=== PATIENT | female | born 2005 | race Caucasian/White ===

== ENCOUNTER 2023-09-11 10:24 | Outpatient (AMB) | payer BC, SELFPAY ==
--- NOTE | 2023-09-11 10:37 | MHC.OFFVIS ---
Vital Signs 09/11/23 10:39 Height 5 ft 4 in Weight 119 lb 0.794 oz BMI 20.4 BP 110/65 Blood Pressure Location Lt brachial Position Sitting Pulse 100 Intake Visit Reasons: abdominal pain, diarrhea Intake Note: Tiesha presents in the office as a new patient appt. CC: Here today for abdominal pains and diarrhea. She states that it is specifically in the lower part of her stomach. Denies any blood when she has a bowel movement. Diarrhea once a week but the pains in her stomach are there every other day. Director Digital Marketing Required: No Allergies No Known Allergies Allergy (Verified 09/11/23 10:39) Medication List - Last Reconciled 09/11/23 by Joan Poe PA-C amitriptyline 40 mg PO DAILY duloxetine 90 mg PO DAILY lamotrigine 100 mg PO BID levonorgestrel (Mirena) intrauterine HPI Comments Details: In 17-year-old female referred with diarrhea. She reportedly has diarrhea approximately 1 time a week. Other times through out the week- constipated- Lower abdominal pain for the past 3 years- pain sometimes relieved after BM- sometimes not- no blood- She has no regimen- Appetite is good- She is a college student-[facility]- pcp in [place] ? POTS and michelle danlos-sleep study pending Started PT-for chronic back and joint pain No N/V/fever or chills PFSH Social History (Updated 09/11/23 @ 11:18 by Joan Poe PA-C) Household Members Other:: [facility]- Parents [place] Alcohol intake: never Patient Tobacco Use Status: Never used Tobacco Current occupational status: employed and student Review of Systems Const All systems reviewed & are unremarkable except as noted in HPI and below Card Denies chest pain and Denies dyspnea Resp Denies dyspnea GI Reports constipation and Reports loose stools Physical Exam Vital Signs: Last Vital Signs Pulse 100 09/11/23 10:39 BP 110/65 09/11/23 10:39 BMI result Body Mass Index 20.4 Const General: cooperative, healthy appearing, comfortable and no acute distress Nutritional Appearance: thin Orientation/consciousness: patient oriented x3 Limitations: no limitations Eyes Conjunctivae: conjunctivae normal Sclerae: sclerae normal Resp Effort & Inspection: normal respiratory effort and able to speak in complete sentences Auscultation: clear to auscultation bilaterally, no crackles, no rales and no rhonchi Cardio Rate: tachycardic ([id number]) Rhythm: regular rhythm GI Palpation (GI): Soft to palpation and nontender Auscultation: normal bowel sounds Skin General skin exam: no rashes or lesions noted Neuro General: patient oriented x3 Extrem Other: hypermobility General: Yes full ROM Psych Appearance: grossly normal and well kempt Mental Status: mental status grossly normal Speech and movement: Normal speech and movement present Affect: normal affect Attitude: cooperative Thought process: Normal thought process present Thought content: Normal thought content present Insight: Good insight present (Psych) Judgement: Good judgement present (Psych) Assessment & Plan Assessment & Plan (1) Diarrhea: Code(s): R19.7 - Diarrhea, unspecified Category: Medical Plan: fiber labs (2) Chronic abdominal pain: Comment: Years periumbilical-nothing specific exacerbate-some relief after BM- Somewhat difficult to assess-bowel issues most her life Code(s): R10.9 - Unspecified abdominal pain; G89.29 - Other chronic pain Category: Medical Plan: Labs Abdominal u/s (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 Manuel henning in clinic Plan See patient with MD for further evaluation given non GI diagnoses- Orders: Orders C Reactive Protein 09/11/23 G89.29 - Other chronic pain, R10.9 - Unspecified abdominal pain, R19.7 - Diarrhea, unspecified Endomysial IgA rflx Titer 09/11/23 G89.29 - Other chronic pain, R10.9 - Unspecified abdominal pain, R19.7 - Diarrhea, unspecified Thyroid Stimulating Hormone 09/11/23 R19.8 - Other specified symptoms and signs involving the digestive system and abdomen Calprotectin, Fecal 09/11/23 R19.7 - Diarrhea, unspecified Complete Blood Count Auto Diff 09/11/23 K52.9 - Noninfective gastroenteritis and colitis, unspecified Comprehensive Met. Panel 09/11/23 K58.9 - Irritable bowel syndrome without diarrhea Erythrocyte Sedimentation Rate 09/11/23 R19.7 - Diarrhea, unspecified Transglutaminase IgA 09/11/23 R19.7 - Diarrhea, unspecified Gliadin Ab Panel 09/11/23 G89.29 - Other chronic pain, R10.9 - Unspecified abdominal pain, R19.7 - Diarrhea, unspecified US abdomen complete 09/11/23 G89.29 - Other chronic pain, R10.9 - Unspecified abdominal pain, R19.7 - Diarrhea, unspecified Patient Instructions: 17-year-old pleasant female somewhat complex medical history currently undergoing workup for Michelle-Danlos as well as POTS With chronic abdominal pain Will follow-up after labs and ultrasound Encouraged to call questions or concerns Coding Level of Care Code New Pt Level 4 (59347) Diagnoses Diarrhea R19.7 Chronic abdominal pain R10.9; G89.29 Michelle-Danlos syndrome Q79.60 Time Spent (min) 35
[2023-09-11 10:39] VITALS: BP 110/65; PULSE 100; BMI 20.4
== END 2023-09-11 11:33 | disposition home or self-care (01) ==
PROVIDERS: Visit Provider Physician Assistant
DX: R19.7 Diarrhea, unspecified (principal); R10.9 Unspecified abdominal pain; G89.29 Other chronic pain; Q79.60 Ehlers-Danlos syndrome, unspecified
CPT/HCPCS: 99204

== ENCOUNTER 2023-09-11 10:24 | Outpatient (REF) | payer BC, SELFPAY ==
[2023-09-11 11:40] LABS: MANUAL DIFF FLAG NO
[2023-09-11 12:15] LABS: Basophils Absolute Auto 0.1 X10*3/uL (0.0-0.2); Basophils Percent Auto 1.3 % (0-2); Eosinophils Absolute Auto 0.1 X10*3/uL (0.0-0.4); Eosinophils Percent Auto 2.1 % (0-4); Hematocrit 41.1 % (37.0-47.0); Hemoglobin 13.7 g/dl (12.0-16.0); Imm Gran Abs Auto 0.01 X10*3/uL (0.00-0.03); Imm Gran Pct Auto 0.2 % (0.0-0.4); Lymphocytes Absolute Auto 2.3 X10*3/uL (1.2-4.9); Lymphocytes Percent Auto 42.4 % (20-40); Mean Corpuscular HGB Conc 33.3 g/dl (31.0-35.0); Mean Corpuscular Hemoglobin 28.8 pg (27.0-33.0); Mean Corpuscular Volume 86.3 fL (80.0-98.0); Monocytes Absolute Auto 0.6 X10*3/uL (0.1-1.2); Monocytes Percent Auto 10.8 % (2-11); Neutrophils Absolute Auto 2.3 x10*3/uL (2.0-8.3); Neutrophils Percent Auto 43.2 % (45-73); Platelet Count 260 X10*3/uL (160-400); Red Blood Count 4.76 X10*6/uL (4.20-5.50); Red Cell Distribution Width 12.8 % (11.0-16.0); White Blood Count 5.4 X10*3/uL (4.8-10.8)
[2023-09-11 12:35] LABS: Alanine Aminotransferase 9 U/L (0-31); Albumin Level 4.3 g/dL (3.5-5.0); Alkaline Phosphatase 59 U/L (39-117); Anion Gap 12 (12-20); Aspartate Amino Transferase 16 U/L (5-31); Bilirubin Total 0.3 mg/dL (0.0-1.0); Blood Urea Nitrogen 7 mg/dL (9-16); C Reactive Protein < 0.04 mg/dL (< or = 0.50); Calcium 9.2 mg/dL (8.4-10.2); Carbon Dioxide 27 mmol/L (22-29); Chloride 104 mmol/L (96-108); Estimated Glomerular Filt Rate > 60; Glucose Random 89 mg/dL (60-115); Potassium 3.8 mmol/L (3.3-5.1); Sodium 139 mmol/L (135-145); Total Protein 7.1 g/dL (6.5-8.0)
[2023-09-11 12:54] LABS: Erythrocyte Sedimentation Rate 1 MM/HR (0-20); Thyroid Stimulating Hormone 0.99 uIU/mL (0.32-4.0)
[2023-09-12 14:13] LABS: Gliadin Deamidated IgA Ab <1.0 U/mL; Gliadin Deamidated IgG Ab <1.0 U/mL; Transglutaminase IgA <1.0 U/mL
[2023-09-14 15:38] LABS: Endomysial IgA Antibody Negative (Negative)
== END 2023-09-11 10:25 | disposition home or self-care (01) ==
LOC: HO.LAB 10:24
PROVIDERS: Visit Provider Physician Assistant
DX: R10.9 Unspecified abdominal pain (principal); G89.29 Other chronic pain; R19.8 Other specified symptoms and signs involving the digestive system and abdomen; K52.9 Noninfective gastroenteritis and colitis, unspecified
CPT/HCPCS: 36415; 80053; 84443; 85025; 85652; 86140; 86231; 86258; 86364

== ENCOUNTER 2023-09-18 08:48 | Outpatient (REF) | payer BC, SELFPAY ==
--- NOTE | ~2023-09-18 | US_ITS ---
EXAMINATION: US ABDOMEN COMPLETE CLINICAL INFORMATION: Unspecified abdominal pain. COMPARISON: None available. TECHNIQUE: Real-time imaging of the abdominal viscera. FINDINGS: PANCREAS: Normal. ABDOMINAL AORTA: The proximal, mid, and distal segments are normal in caliber. INFERIOR VENA CAVA: Visualized portions are normal. LIVER: Normal. The liver is normal in size. The liver contour is normal. Parenchymal echogenicity is normal. No focal hepatic lesion. There is no intrahepatic biliary duct dilatation seen. GALLBLADDER: Normal. The gallbladder is physiologically distended without evidence of stones, sludge, polyps, wall thickening or pericholecystic fluid. COMMON BILE DUCT: Normal in caliber measuring 0.5 cm in diameter. RIGHT KIDNEY: Normal. No hydronephrosis. No renal calculi or focal parenchymal lesions. The kidney measures 9.7 cm in maximum dimension. LEFT KIDNEY: Normal. No hydronephrosis. No renal calculi or focal parenchymal lesions. The kidney measures 10.2 cm in maximum dimension. SPLEEN: Normal. The spleen measures 9.6 cm in maximum dimension. FREE FLUID: None. US/US abdomen complete IMPRESSION: Unremarkable examination.
== END 2023-09-18 08:49 | disposition home or self-care (01) ==
LOC: HO.HMGCX 08:48
PROVIDERS: Visit Provider Physician Assistant
DX: R10.9 Unspecified abdominal pain (principal); R19.7 Diarrhea, unspecified; G89.29 Other chronic pain
CPT/HCPCS: 76700

== ENCOUNTER 2023-12-15 10:31 | Outpatient (REF) | payer BC, SELFPAY ==
--- NOTE | ~2023-12-15 | XR_ITS ---
EXAMINATION: XR ABDOMEN KUB CLINICAL INFORMATION: Diarrhea, unspecified. COMPARISON: None available. TECHNIQUE: AP view of the abdomen. FINDINGS: Moderate volume of stool in the colon. Three residual Sitz markers are evident, located in the descending colon and rectum. Nondilated bowel gas pattern. IUD is present in the pelvis. No acute osseous findings. Minimal left convex lumbar curvature. The joints are unremarkable. XR/XR KUB IMPRESSION: 1. Three residual Sitz markers are evident at day 5, located in the descending colon and rectum. Recommend correlation with the protocol utilized (20 versus 24 markers ingested). 2. Moderate volume of stool in the colon. Electronically signed by: Fadi Hanson MD 01/12/2024 07:49 PM EDT RP
== END 2023-12-15 10:32 | disposition home or self-care (01) ==
LOC: HO.XRAY 10:31
PROVIDERS: Visit Provider Internal Medicine Gastroenterology
DX: R19.7 Diarrhea, unspecified (principal); Q79.60 Ehlers-Danlos syndrome, unspecified
CPT/HCPCS: 74018; A9698

== ENCOUNTER 2023-12-15 10:31 | Outpatient (AMB) | payer BC, SELFPAY ==
--- NOTE | 2023-12-15 10:36 | A.OFFVIS_ITS ---
Vital Signs 12/15/23 10:39 Height 5 ft 4 in Weight 114 lb 10.246 oz BMI 19.7 BP 114/71 Blood Pressure Location Lt brachial Position Sitting Pulse 97 Intake Visit Reasons: 2nd opinion Joan Intake Note: Tiesha presents in the office as a second opinion. CC: She states that she is having abdominal pains every nights. It is regardless of what she eats. She states she has constipation and diarrhea that will vary. No blood when she has a BM. Military Pay Technician Required: No Allergies No Known Allergies Allergy (Verified 12/15/23 10:39) HPI HPI 2nd opinion Joan: Details: 18-year-old female here for f/u She initially saw [facility] she has lower abdominal pain, she has IUD--mirena pain can be relieved when passing stool she has no periods she can go between constipation or diarrhea, but mostly diarrhea stool can be liquid or soft no blood in stools no n/v no gerd no dysphagia she has early satiety, weight is stable she can have joint pains some time, she has subluxed joints, pains in SI joints canker sores when stressed, mild, go away in 2 d her PCP in [facility] suggested she might have michelle danlos she denies pain with intimate endometriosis no FH of Michelle danlos she has brain fog, no hives she gets dizzy when stands, palptns EXAM: GENERAL: The patient is well developed and nontoxic. VITAL SIGNS:see workflow HEENT: Nonicteric sclerae, PERRLA, EOMI. Oropharynx clear. Moist mucous membranes. Conjunctivae appear well perfused. No thyroid mass. CHEST: Chest wall is nontender. HEART: Regular rate and rhythm without murmurs. LUNGS: Clear to auscultation bilaterally. ABDOMEN: Soft, positive bowel sounds, nontender, no organomegaly.no flank tenderness SKIN: No rash, no excessive bruising, petechiae, or purpura. NEUROLOGIC: Cranial nerves II-XII intact without motor/sensory deficit. Psych: normal affect hypermobile joints A/P: 1/ Aletered bowel habits, may have IBS-M, no red flags, 2/ early satiety, may have POTS and gastroparesis, also EDS hypermobile variant PLAN: 1/ refer rheum 2/ EGD< if neg for GOO then GES 3/ Sitz marker, 4/ hold on fiber advice for the moment 5/ orthostatics today, may cards referral as well [facility] Social History Household Members Other:: [facility]- Parents [place] Alcohol intake: never Patient Tobacco Use Status: Never used Tobacco Current occupational status: employed and student Physical Exam Vital Signs: Last Vital Signs Pulse 97 12/15/23 10:39 BP 114/71 12/15/23 10:39 BMI result Body Mass Index 19.7 Assessment & Plan Assessment & Plan (1) Michelle-Danlos syndrome: Comment: POTS- currently 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
[2023-12-15 10:39] VITALS: BP 114/71; PULSE 97; BMI 19.7
== END 2023-12-15 11:24 | disposition home or self-care (01) ==
PROVIDERS: Visit Provider Internal Medicine Gastroenterology
DX: Q79.60 Ehlers-Danlos syndrome, unspecified (principal); R19.7 Diarrhea, unspecified
CPT/HCPCS: 99214

== ENCOUNTER 2023-12-19 15:28 | Outpatient (REF) | payer BC, SELFPAY ==
--- NOTE | ~2023-12-19 | XR_ITS ---
EXAMINATION: XR ABDOMEN KUB CLINICAL INDICATION: R19.7 - Diarrhea, unspecified COMPARISON: None available. TECHNIQUE: AP view of the abdomen. FINDINGS: Submitted for interpretation on March 29, 2024. Abundant stool within the right hemicolon. No intestinal dilatation. No air-fluid levels. There is a T-shaped contraceptive device in the lower pelvis. Castellvi type III sacralization. Levoconvex curvature apex at L4-5. XR/XR KUB IMPRESSION: No intestinal obstruction pattern. Electronically signed by: Vel Munguia MD 03/29/2024 11:32 AM DANIEL
== END 2023-12-19 15:29 | disposition home or self-care (01) ==
LOC: HO.XRAY 15:28
PROVIDERS: Visit Provider Internal Medicine Gastroenterology
DX: R19.7 Diarrhea, unspecified (principal); Q79.60 Ehlers-Danlos syndrome, unspecified
CPT/HCPCS: 74018

== ENCOUNTER 2024-02-28 02:57 | Emergency (ER) | payer BC, SELFPAY ==
[2024-02-28 03:07] VITALS: BP 138/94; PULSE 94; O2SAT 96
[2024-02-28 03:08] VITALS: PULSE 83; RESP 18; TEMP 36.4; O2SAT 100; BMI 20.1
--- NOTE | 2024-02-28 03:16 | PC.NURSE ---
Pt coming from [facility], [facility], pt had 5 shots of gin and juice and having n/v. Pt reports they felt like they could not stop throwing up. Pt reports they finally stopped vomiting, still feeling a bit nauseous. Pt changed into hospital [facility], and belongings in backpack brought to closet. VSS, plan of care on going.
[2024-02-28 03:35] LABS: Basophils Absolute Auto 0.1 X10*3/uL (0.0-0.2); Basophils Percent Auto 0.8 % (0-2); Eosinophils Percent Auto 0.6 % (0-4); Hematocrit 39.6 % (37.0-47.0); Hemoglobin 13.6 g/dl (12.0-16.0); Imm Gran Abs Auto 0.01 X10*3/uL (0.00-0.03); Imm Gran Pct Auto 0.2 % (0.0-0.4); Lymphocytes Absolute Auto 1.7 X10*3/uL (1.2-4.9); Lymphocytes Percent Auto 28.2 % (20-40); MANUAL DIFF FLAG NO; Mean Corpuscular HGB Conc 34.3 g/dl (31.0-35.0); Mean Corpuscular Hemoglobin 29.1 pg (27.0-33.0); Mean Corpuscular Volume 84.6 fL (80.0-98.0); Mean Platelet Volume 8.6 fL (9.4-12.3); Monocytes Absolute Auto 0.4 X10*3/uL (0.1-1.2); Monocytes Percent Auto 6.3 % (2-11); Neutrophils Absolute Auto 3.9 x10*3/uL (2.0-8.3); Neutrophils Percent Auto 63.9 % (45-73); Platelet Count 248 X10*3/uL (160-400); Red Blood Count 4.68 X10*6/uL (4.20-5.50); Red Cell Distribution Width 12.6 % (11.0-16.0); White Blood Count 6.2 X10*3/uL (4.8-10.8)
[2024-02-28 03:48] LABS: Anion Gap 16 (12-20); Blood Urea Nitrogen 11 mg/dL (9-16); Calcium 9.2 mg/dL (8.4-10.2); Carbon Dioxide 20 mmol/L (22-29); Chloride 108 mmol/L (96-108); Creatinine Clr Calc Pharmacy 101.8; Estimated Glomerular Filt Rate > 60; Ethanol 94 mg/dL; Glucose Random 95 mg/dL (60-115); Potassium 3.7 mmol/L (3.3-5.1); Sodium 140 mmol/L (135-145)
[2024-02-28] MEDS: Ondansetron ODT 4 MG TAB.RAPDIS TRANSLINGU (04:33)
[2024-02-28] MEDS: Magnesium Hydrox/Alum Hydrox 30 ML ORAL.SUSP PO (04:33)
[2024-02-28] MEDS: Omeprazole 40 MG CAPSULE.DR PO (04:33)
--- NOTE | 2024-02-28 06:15 | ED.ALCOHOL ---
HPI - Alcohol General Chief Complaint: ETOH/Substance Use Stated Complaint: ETOH, v Time Seen by Provider: 02/28/24 04:02 Source: patient Mode of arrival: EMS Limitations: no limitations History of Present Illness ED Provider: david VELASQUEZ narrative: Patient's sudden from [place] who your was not a 38 and had 5 shots of gin and juice she does not drink alcohol otherwise came here intoxicated vomiting multiple times no fall no injuries Related Data Home Medications ?Medication ?Instructions ?Recorded ?Confirmed amitriptyline 10 mg tablet 40 mg PO DAILY 09/11/23 duloxetine 30 mg capsule,delayed 90 mg PO DAILY 09/11/23 release lamotrigine 100 mg tablet 100 mg PO BID 09/11/23 levonorgestrel 21 mcg/24 hr (up to intrauterine 09/11/23 8 years) 52 mg intrauterine device (Mirena) Allergies Allergy/AdvReac Type Severity Reaction Status Date / Time No Known Allergies Allergy Verified 02/28/24 03:12 Review of Systems Review of Systems: Yes all other systems are reviewed and are negative [facility] Social History Social History Household Members Other:: [facility] Alcohol intake: current Alcohol intake frequency: a few times a month Alcohol type: hard liquor Patient Tobacco Use Status: Never used Tobacco Smoked in Last 30 Days: No Use of substances other than those prescribed or required for medical reasons: No Advance Directives: No Advance Directives Information Provided: No Patient : No Current occupational status: employed and student Physical Exam ED Vital Signs: Vital Signs - 24 hr 02/28/24 03:08 Temperature 97.6 F Pulse Rate 83 Respiratory Rate 18 Pulse Oximetry 100 Oxygen Delivery Method Room Air BMI result Body Mass Index 20.1 Appearance: Alert. Oriented X3. No acute distress. Eyes: PERRLA, ENT: Pharynx normal. Oral Mucosa moist Neck: Normal inspection. Neck supple. CVS: Normal heart rate and rhythm. Pulses normal. Respiratory: No respiratory distress. Equal air entry bilateral, no wheezing/rales/rhonchi Abdomen: Soft and mild epigastric tenderness Bowel sounds are present, no mass palpable, no CVA tenderness Skin: Skin warm and dry. Normal skin color. Normal skin turgor. Extremities: No lower extremity edema. No calf tenderness Neuro: Oriented X 3. Medical Decision Making Medical Decision Making [facility] Narrative: Patient has acute alcohol intoxication with gastritis feeling much better after sublingual Zofran taking p.o. fluids will discharge patient back to cause Lab Data [facility] Lab Attestation statement: I reviewed the patient's lab results. 02/28/24 03:29 02/28/24 03:29 Labs: Lab Results 02/28/24 Range/Units 03:29 WBC 6.2 (4.8-10.8) X10*3/uL RBC 4.68 (4.20-5.50) X10*6/uL Hgb 13.6 (12.0-16.0) g/dl Hct 39.6 (37.0-47.0) % MCV 84.6 (80.0-98.0) fL MCH 29.1 (27.0-33.0) pg MCHC 34.3 (31.0-35.0) g/dl RDW 12.6 (11.0-16.0) % Plt Count 248 (160-400) X10*3/uL MPV 8.6 L (9.4-12.3) fL Immature Gran % (Auto) 0.2 (0.0-0.4) % Neut % (Auto) 63.9 (45-73) % Lymph % (Auto) 28.2 (20-40) % Ashe % (Auto) 6.3 (2-11) % Eos % (Auto) 0.6 (0-4) % Baso % (Auto) 0.8 (0-2) % Lymph # (Auto) 1.7 (1.2-4.9) X10*3/uL Ashe # (Auto) 0.4 (0.1-1.2) X10*3/uL Eos # (Auto) 0.0 (0.0-0.4) X10*3/uL Baso # (Auto) 0.1 (0.0-0.2) X10*3/uL Abs Immat Gran (auto) 0.01 (0.00-0.03) X10*3/uL Absolute Neuts (auto) 3.9 (2.0-8.3) x10*3/uL Absolute Nucleated RBC 0.000 (0.0-0.012) X10*3/uL Nucleated RBC % (auto) 0.0 (0.0-0.2) /100WBC Sodium 140 (135-145) mmol/L Potassium 3.7 (3.3-5.1) mmol/L Chloride 108 (96-108) mmol/L Carbon Dioxide 20 L (22-29) mmol/L Anion Gap 16 (12-20) BUN 11 (9-16) mg/dL Creatinine 0.74 (0.5-1.4) mg/dL Estim Creat Clear Calc 101.8 Estimated GFR > 60 Random Glucose 95 (60-115) mg/dL Calcium 9.2 (8.4-10.2) mg/dL Ethyl Alcohol 94 mg/dL Medications Administered Discontinued Medications Generic Name Dose Route Start Last Admin Trade Name Maneq PRN Reason Stop Dose Admin Al Hydroxide/Mg Hydroxide 30 ml 02/28/24 04:24 02/28/24 04:33 Magnesium Hydrox/Alum Hydrox 30 Ml Oral.Susp PO 02/28/24 04:25 30 ml ONCE ONE Administration Omeprazole 40 mg 02/28/24 04:23 02/28/24 04:33 Omeprazole 40 Mg Capsule.Dr PO 02/28/24 04:24 40 mg ONCE ONE Administration Ondansetron HCl 4 mg 02/28/24 04:23 02/28/24 04:33 Ondansetron Odt 4 Mg Tab.Rapdis TRANSLINGU 02/28/24 04:24 4 mg ONCE ONE Administration Discharge Plan Discharge Clinical Impression: Acute alcoholic gastritis Patient Disposition: Home, Self-Care Instructions: Alcohol Intoxication (ED) Additional Instructions: Do not drink alcohol in excessive amounts Drink plenty of fluids Prescriptions: No Action duloxetine 30 mg capsule,delayed release(DR/EC) 90 mg PO DAILY amitriptyline 10 mg tablet 40 mg PO DAILY lamotrigine 100 mg tablet 100 mg PO BID Mirena 21 mcg/24 hours (8 yrs) 52 mg intrauterine device intrauterine Print Language: Australian
[2024-02-28 06:30] VITALS: BP 106/65; PULSE 93; RESP 18; TEMP 36.7; O2SAT 99
[2024-02-28 06:32] VITALS: BP 106/65; PULSE 93; RESP 18; TEMP 36.7; O2SAT 99
== END 2024-02-28 06:30 | disposition home or self-care (01) ==
PROVIDERS: Emergency Provider Internal Medicine
DX: K29.20 Alcoholic gastritis without bleeding (principal); F10.90 Alcohol use, unspecified, uncomplicated; Y90.4 Blood alcohol level of 80-99 mg/100 ml; Z79.899 Other long term (current) drug therapy
CPT/HCPCS: 36415; 80048; 80307; 85025; 99284

== ENCOUNTER 2024-03-04 07:28 | Day surgery (SDC) | payer BC, SELFPAY ==
[2024-03-03 06:50] VITALS: BMI 19.6
--- NOTE | 2024-03-03 09:29 | P.CONAN_ITS ---
Documented by User: Noemy Allan NP 03/03/24 09:35 HPI - Anesthesia Eval Consult details Narrative: 18yo F for Upper Endoscopy [facility] Active Problems Active Problems: All Active Problems Michelle-Danlos syndrome (Acute) Chronic abdominal pain (Acute) Diarrhea (Acute) Past Medical History Medical History (Updated 03/04/24 @ 08:00 by Michelle Walker RN) Arrhythmia Panic disorder Orthostasis Migraine Depression Feeding problem Fatigue Anxiety Surgical History Surgical History (Updated 03/03/24 @ 06:54 by Vandana Ray RN) Hx of wisdom tooth extraction Social History Social History Household Members Other:: [employer] [facility]- Parents [place] Alcohol intake: current Alcohol intake frequency: a few times a month Alcohol type: hard liquor Patient Tobacco Use Status: Never used Tobacco Current occupational status: employed and student Meds Allergies Allergy/AdvReac Type Severity Reaction Status Date / Time No Known Allergies Allergy Verified 02/28/24 03:12 Home Medications ?Medication ?Instructions ?Recorded ?Confirmed ?Last Taken ?Type amitriptyline 10 mg tablet 40 mg PO DAILY 09/11/23 Unknown History duloxetine 30 mg capsule,delayed 90 mg PO DAILY 09/11/23 Unknown History release lamotrigine 100 mg tablet 100 mg PO BID 09/11/23 03/04/24 History levonorgestrel 21 mcg/24 hr (up to intrauterine 09/11/23 Unknown History 8 years) 52 mg intrauterine device (Mirena) Exam Height,Weight and Vital Signs: Height 5 ft 4 in Weight 51.71 kg Assessment and Plan Assessment Anesthesia Assessment: Chart Reviewed Documented by User: Pantera Castillo MD 03/04/24 08:29 [facility] Past Medical History Medical History (Updated 03/04/24 @ 08:00 by Michelle Walker RN) Arrhythmia Panic disorder Orthostasis Migraine Depression Feeding problem Fatigue Anxiety Patient : No Family History Family history of problems with anesthesia: No Surgical History Surgical History (Updated 03/03/24 @ 06:54 by Vandana Ray RN) Hx of wisdom tooth extraction History of Problems with Anesthesia: No Social History Social History Household Members Other:: Rafael Marie- Parents [place] Alcohol intake: current Alcohol intake frequency: a few times a month Alcohol type: hard liquor Patient Tobacco Use Status: Never used Tobacco Current occupational status: employed and student Meds Allergies Allergy/AdvReac Type Severity Reaction Status Date / Time No Known Allergies Allergy Verified 02/28/24 03:12 Home Medications ?Medication ?Instructions ?Recorded ?Confirmed ?Last Taken ?Type amitriptyline 10 mg tablet 40 mg PO DAILY 09/11/23 Unknown History duloxetine 30 mg capsule,delayed 90 mg PO DAILY 09/11/23 Unknown History release lamotrigine 100 mg tablet 100 mg PO BID 09/11/23 03/04/24 History levonorgestrel 21 mcg/24 hr (up to intrauterine 09/11/23 Unknown History 8 years) 52 mg intrauterine device (Mirena) Exam Airway Mallampati Class: II TM Dist: >3cm Neck ROM: Full Loose/Missing/Broken Teeth: No Heart: ok Lungs: ok Assessment and Plan Assessment Anesthesia Assessment: Anesthesia Plan Discussed Final Anesthetic Review Family History of Problems with Anesthesia: No History of Problems with Anesthesia: No NPO: Yes ASA Class: II Final Preanesthetic Review: No Changes in Pt Med Stat, Meds/Allgs Chart Reviewed, Consent Obtained/Reviewed and Anes Risks/Benef Reviewed Patient Risk: Low Procedure Risk: Intermediate Anesthetic Plan Anesthetic Plan: Agree w/ Assess. and Plan and TIVA Disposition: Standard PACU
[2024-03-04 08:02] VITALS: BMI 20.3
[2024-03-04 08:12] VITALS: BP 99/66; PULSE 83; RESP 16; TEMP 36.8; O2SAT 97
--- NOTE | 2024-03-04 08:15 | P.HPSUR_ITS ---
Pre-Procedural Eval Section A - 24 Hr Update-Section A only Date of Service: 03/04/24 Section B - Complete if H&P > 30 days Chief Complaint: Michelle-Danlos syndrome, unspecified Relevant Family History (Specify if Yes): No Relevant Social History: Alcohol Use Present Medications: see Short Stay Collaborative assessment Medical History: Significant History (Panic disorder Orthostasis Migraine Depression Feeding problem Fatigue Anxiety) History of Previous Operations: Relevant previous surgery/procedure and date(s) (Hx of wisdom tooth extraction) Allergies: Allergies Allergy/AdvReac Type Severity Reaction Status Date / Time No Known Allergies Allergy Verified 02/28/24 03:12 Review of Systems Sugical H&P ROS: Negative: Constitution, Cardiovascular, Respiratory, Neurological, Psychiatric, Hem-Onc, Allergic/Immunologic, Gastrointestinal, Genitourinary, Musculoskeletal, Integumentary, Endocrine and Eyes/Ears/Nose/Throat Exam Surgical H&P Exam: Normal: HEENT, Normal: Heart, Normal: Lungs, Normal: Extr emities, Normal: Abdomen, Normal: Skin and Normal: Neurological Plan Diagnosis/Plan: Unchanged I have reviewed the history and physical and performed a pertinent physical examination on my patient. No changes have occurred unless specified. Time Spent With Patient Time: Total time managing care of this patient today ____ minutes.
[2024-03-04 08:22] LABS: UPreg QC Valid YES; Urine Pregnancy NEGATIVE (NEGATIVE)
[2024-03-04] MEDS: Lactated Ringers 1,000 ML 80 ML IVCONT (08:26)
--- NOTE | 2024-03-04 08:41 | W.PM.OPN ---
Operative Note Operative Note Date of Service: 03/04/24 Narrative: Procedure Description: EGD Indication: abn bowel habit Anesthesia: MAC FLEXIBLE TRANSORAL UPPER GASTROINTESTINAL ENDOSCOPY UPPER ENDOSCOPY Consent: Indications for the procedure and potential complications of bleeding, perforation, reaction to medications and missed diagnosis were discussed with the patient and informed consent was obtained. Instrument: Olympus GIF H 190 J mid size upper endoscope Monitoring: Vital signs and clinical assessment, continuous EKG monitoring, Pulse oximetry, Carbon Dioxide monitoring and blood pressure monitoring were done throughout the procedure. Procedure: The patient was placed in the left lateral decubitis position and pre-procedure medications were administered and a bite block was placed. The endoscope was inserted into the mouth and advanced under direct vision to the third part of duodenum. A careful inspection was made as the upper endoscope was withdrawn including a retroflexed examination of the proximal stomach; Findings and interventions are described below. Findings: Larynx:normal Esophagus: GE junction at 40 cm, diaphragm hiatus at 40 cm, mild esophagitis, bx taken from GEJ, distal and proximal esophagus Stomach: normal . Biopsies were obtained. Grade 2 flap valve on retroflexed examination of the cardia. Reduced gastric motility noted Duodenum: Normal bulb and descending duodenum, bx taken Intervention: Biopsies as noted above, Impression/Findings: mild esophagitis possible gastroparesis PLAN: if bx neg then GES to r/o gastroparesis GERD precautions
[2024-03-04 08:49] VITALS: BP 83/46; PULSE 87; RESP 18; TEMP 36.4; O2SAT 95
[2024-03-04 09:06] VITALS: BP 96/58; PULSE 93; RESP 17; TEMP 36.4; O2SAT 99
== END 2024-03-04 09:40 | disposition home or self-care (01) ==
PROVIDERS: Visit Provider Internal Medicine Gastroenterology
PROC: 0DJ08ZZ Inspection of Upper Intestinal Tract, Via Natural or Artificial Opening Endoscopic (ICD-10-PCS; CPT 43235; principal; 2024-03-04 08:10)
DX: K20.90 Esophagitis, unspecified without bleeding (principal); Q79.60 Ehlers-Danlos syndrome, unspecified; R19.4 Change in bowel habit
CPT/HCPCS: 43239; 81025; 88305; 88313; 88342; J2003; J2704

== ENCOUNTER → 2024-03-04 07:28 | Outpatient (BNV) | payer BC, SELFPAY | PROVIDERS: Visit Provider Internal Medicine Gastroenterology | DX: K20.90 Esophagitis, unspecified without bleeding (principal); R19.4 Change in bowel habit; Q79.60 Ehlers-Danlos syndrome, unspecified | CPT/HCPCS: 43239 ==

== ENCOUNTER 2024-04-05 10:22 | Outpatient (AMB) | payer BC, SELFPAY ==
--- NOTE | 2024-04-05 10:23 | MHC.OFFVIS ---
Vital Signs 04/05/24 10:24 Height 5 ft 4 in Weight 116 lb 13.52 oz BMI 20.1 BP 105/66 Blood Pressure Location Lt brachial Position Sitting Pulse 88 Intake Visit Reasons: 4 month follow up Intake Note: Tiesha presents in the office as a 4 month follow up. CC: Had an EGD and just here today for the results. Allergies No Known Allergies Allergy (Verified 04/05/24 10:25) HPI HPI 4 month follow up: Details: 18-year-old female here for f/u RECAP: She initially saw [facility] she has lower abdominal pain, she has IUD--mirena pain can be relieved when passing stool she has no periods she can go between constipation or diarrhea, but mostly diarrhea stool can be liquid or soft she has early satiety, weight is stable she can have joint pains some time, she has subluxed joints, pains in SI joints canker sores when stressed, mild, go away in 2 d her PCP in [facility] suggested she might have michelle danlos she denies pain no FH of Michelle danlos she has brain fog, no hives she gets dizzy when stands, palptns EGD: 03/21 Findings: Larynx:normal Esophagus: GE junction at 40 cm, diaphragm hiatus at 40 cm, mild esophagitis, bx taken from GEJ, distal and proximal esophagus Stomach: normal . Biopsies were obtained. Grade 2 flap valve on retroflexed examination of the cardia. Reduced gastric motility noted Duodenum: Normal bulb and descending duodenum, bx taken Intervention: Biopsies as noted above, Impression/Findings: mild esophagitis possible gastroparesis PLAN: if bx neg then GES to r/o gastroparesis GERD precautions Path: normal INTERIM: She has ongoing lower abdominal pain no blood in stools no n/v no gerd no dysphagia no satiety she is going to [facility] for studies EXAM: GENERAL: The patient is well developed and nontoxic. VITAL SIGNS:see workflow HEENT: Nonicteric sclerae, PERRLA, EOMI. Oropharynx clear. Moist mucous membranes. Conjunctivae appear well perfused. No thyroid mass. CHEST: Chest wall is nontender. HEART: high rate and rhythm without murmurs. LUNGS: Clear to auscultation bilaterally. ABDOMEN: Soft, positive bowel sounds, nontender, no organomegaly.no flank tenderness SKIN: No rash, no excessive bruising, petechiae, or purpura. NEUROLOGIC: Cranial nerves II-XII intact without motor/sensory deficit. Psych: normal affect hypermobile joints A/P: 1/ Aletered bowel habits, may have IBS-M, no red flags, 2/ early satiety, may have POTS and gastroparesis, also EDS hypermobile variant 3/ crampy lower abdo pain ?endometriosis PLAN: 1/ when she gets back will get pelvic us to r/o endometriosis also can consider colonoscopy and maybe GES 2/ talked abt genetics referral and maybe gene testing for EDS 3/ trial of levsin PFSH Medical History (Updated 04/05/24 @ 10:51 by Nicole Jackson MD) Arrhythmia Panic disorder Orthostasis Migraine Depression Feeding problem Fatigue Anxiety Surgical History (Updated 04/05/24 @ 10:27 by ZAIRA Huddleston) History of esophagogastroduodenoscopy (EGD) Hx of wisdom tooth extraction Social History Household Members Other:: Ca Cynthia- Parents [place] Alcohol intake: current Alcohol intake frequency: a few times a month Alcohol type: hard liquor Patient Tobacco Use Status: Never used Tobacco Current occupational status: employed and student Physical Exam Vital Signs: Last Vital Signs Pulse 88 04/05/24 10:24 BP 105/66 04/05/24 10:24 BMI result Body Mass Index 20.1 Assessment & Plan Assessment & Plan (1) Chronic abdominal pain: Code(s): R10.9 - Unspecified abdominal pain; G89.29 - Other chronic pain Category: Medical Plan: see above Medications: New hyoscyamine sulfate 0.125 mg PO BID-QID PRN 90 tabs 0RF dyspepsia Coding Level of Care Code Est Pt Level 3 (41556) Diagnoses Chronic abdominal pain R10.9; G89.29
[2024-04-05 10:24] VITALS: BP 105/66; PULSE 88; BMI 20.1
--- OUTSIDE RECORDS SUMMARY | 2024-04-07 14:31 | XMS_ITS ---
Author Organization [facility] Address [address], [facility] [place] [address] Care Team Providers Care Business Process Architect Name Role Phone Derrek Pichardo [phone] ALLERGIES, ADVERSE REACTIONS, ALERTS None MEDICATIONS Medication Code Code System Start Date Stop Date Route Dosage Directions Fill Instructions lamotrigine 0 RxNorm oral amitriptyline 0 RxNorm oral duloxetine 0 RxNorm oral PROBLEMS Problem Name Code Code System Start Date End Date Stat us Fibromyalgia 011710975 [facility] Active Low back pain, unspecified 088931722 [facility] 08/04/2023 Active ENCOUNTERS Encounter Diagnosis Code Code System Date Stat us Low back pain, unspecified 407130476 [facility] 08/04/2023 Active IMMUNIZATIONS * None VITAL SIGNS Code Code System Vitals Name Date Value and Un its 8462-4 [facility] Blood Pressure-Diastolic 08/04/2023 63 mmHg 8480-6 [facility] Blood Pressure-Systolic 08/04/2023 1 13 mmHg 8867-4 [facility] Heart Rate 08/04/2023 110 /min 9279-1 [facility] Respiratory Rate 08/04/2023 18 /min 8310-5 [facility] Body Temperature 08/04/2023 98.3 F 76359-0 [facility] Oxygen Saturation 08/04/2023 96 % SOCIAL HISTORY * None PROCEDURES * None RESULTS Test Code Code System Description Result Value Date Ref erence Range [facility] hCG Negative 08/04/2023 [facility] Glucose Negative 08/04/2023 [facility] Bilirubin Negative 08/04/2023 [facility] Ketone Negative 08/04/2023 [facility] Specific Elmo >=1.030 08/04/2023 [facility] Blood Negative 08/04/2023 [facility] pH 6.72878 08/04/2023 [facility] Protein Negative 08/04/2023 [facility] Urobilinogen 0.49191 E.U./dL 08/04/2023 [facility] Nitrite Negative 08/04/2023 [facility] Leukocytes Trace 08/04/2023 [facility] Color Yellow 08/04/2023 [facility] Clarity Clear 08/04/2023 630-4 [facility] CULTURE, URINE, ROUTINE SEE NOTE 08/04/2023 MEDICAL EQUIPMENT * Patient has no history of implantable devices ASSESSMENT Assessment Take ibuprofen 600 mg every 6-8 hours for the next 3 days. Rest and perform gentle exercise such as walking. Follow-up with your primary care doctor for further evaluation. Return for any new or worsening symptoms. TREATMENT PLAN Type Description Date APPOINTMENT If not feeling jordon r in 3 day(s), please see your primary care physician. If you do not have a primary care physician, please return to this clinic. 08/04/2023 Labs Tests Test Name Code Code System Date [facility] Urinalysis, automated, without microscopy 810 03 CPT 08/04/2023 [facility] hCG Chemistry Test, Qualitative 847 03 CPT 08/04/2023 CULTURE, URINE, ROUTINE 15987;25117 CPT 2023 GOALS * None HEALTH CONCERNS * No Health Concerns FUNCTIONAL AND COGNITIVE STATUS * None CONSULTATION NOTES * None DISCHARGE SUMMARY NOTES * None HISTORY AND PHYSICAL NOTES * None IMAGING NOTES * None LABORATORY REPORT NARRATIVE NOTES * None PATHOLOGY REPORT NARRATIVE NOTES * None PROGRESS NOTES * None
== END 2024-04-05 10:57 | disposition home or self-care (01) ==
PROVIDERS: Visit Provider Internal Medicine Gastroenterology
DX: R10.9 Unspecified abdominal pain (principal); G89.29 Other chronic pain
CPT/HCPCS: 99213

== ENCOUNTER → 2024-04-05 10:22 | Outpatient (BNVA) | payer BC, SELFPAY | PROVIDERS: Visit Provider Internal Medicine Gastroenterology ==

== ENCOUNTER 2025-01-13 12:53 | Outpatient (REF) | payer BC, SELFPAY ==
--- NOTE | ~2025-01-13 | US_ITS ---
CLINICAL HISTORY: R10.9 - Unspecified abdominal pain --- Additional Notes or Special Instructions: lower abdominal pain and cramps r o pelvic pathology including US pelvis transabdominal and transvaginal Comparison: None provided Findings: Transabdominal scanning performed for overall anatomy. Transvaginal scanning performed for additional detail. Anteverted uterus is 6.8 cm length. Normal myometrium. Endometrium 2 mm thickness. There is an intrauterine device within the endometrial canal. Right ovary 3.6 x 2.3 x 3.1 cm. Left ovary 3.7 x 2.4 x 1.6 cm. There are multiple normal appearing follicles within the ovaries. There is no suspicious adnexal mass. Normal color Doppler of both ovaries. No free fluid. IMPRESSION: 1. There is an intrauterine device within the endometrial canal. Otherwise unremarkable study. This document has been electronically signed by: Marion Cody MD on 01/14/2025 14:42:25
== END 2025-01-13 12:54 | disposition home or self-care (01) ==
LOC: HO.HMGCX 12:53
PROVIDERS: Visit Provider Internal Medicine Gastroenterology
DX: G89.29 Other chronic pain (principal); R10.9 Unspecified abdominal pain
CPT/HCPCS: 76830; 76856

== ENCOUNTER → 2025-01-13 12:57 | Outpatient (BNV) | payer BC, SELFPAY | PROVIDERS: Visit Provider Radiology Diagnostic Radiology | DX: R10.9 Unspecified abdominal pain (principal) | CPT/HCPCS: 76830; 76856 ==